=== PATIENT | female | born 1980 | race Caucasian/White ===

== ENCOUNTER → 2018-07-31 | Outpatient (CLI) | payer BC ==
[2018-07-31 12:13] LABS: Source, Urine Clean Catch
[2018-07-31 16:40] LABS: Bilirubin, Urine Neg (Neg); Blood, Urine Neg (Neg); Glucose Qualitative, Urine Neg (Neg); Ketones, Urine Neg (Neg); Leukocyte Esterase, Urine 1+ (Neg); Nitrite, Urine Neg (Neg); Protein, Urine Neg (Neg); Urobilinogen, Urine NORM (Normal); pH, Urine 6.5 (5.0-8.0)
[2018-07-31 17:04] LABS: Appearance, Urine Clear (Clear); Color, Urine Yellow (P-Yellow)
[2018-07-31 17:07] LABS: Bacteria Not Seen /hpf; Red Blood Cells, Urine Not Seen /hpf (0-2); Squamous Epithelial Cells Few /hpf (Few); White Blood Cells, Urine 0-2 /hpf (0-5)
== END ==
LOC: LAB SHORT 12:05 → LAB 12:05
PROVIDERS: Nurse Practitioner Family
DX: R30.0 Dysuria (principal)
CPT/HCPCS: 81001; 87086

== ENCOUNTER → 2019-04-19 | Outpatient (CLI) | payer BC | END | disposition home or self-care (01) | LOC: LAB SHORT 10:09 → LAB 10:09 | DX: R30.0 Dysuria (principal) | CPT/HCPCS: 87086 ==

== ENCOUNTER → 2019-06-21 | Outpatient (CLI) | payer BC ==
[2019-06-27 04:42] LABS: CHLAMYDIA TRACHOMATIS, NAA Negative (Negative); HPV 16 Negative (Negative); HPV 18 Negative (Negative); HPV OTHER HR TYPES Negative (Negative); NEISSERIA GONORRHOEAE, NAA Negative (Negative)
== END ==
LOC: LAB SHORT 11:50 → LAB 11:50
PROVIDERS: Student in an Organized Health Care Education/Training Program
DX: Z12.4 Encounter for screening for malignant neoplasm of cervix (principal); Z11.3 Encounter for screening for infections with a predominantly sexual mode of transmission
CPT/HCPCS: 87491; 87591; 87624; G0123

== ENCOUNTER 2020-12-18 20:08 | Emergency (ER) | payer BC ==
[~2020-12-18] VITALS: Ht 167.6 cm; Wt 95.2 kg
[2020-12-18] MEDS ORDERED: AMOCLA875 PO (21:25)
[2020-12-19] MEDS ORDERED: FLUC150A PO (00:22)
== END 2020-12-18 21:34 | disposition home or self-care (01) ==
LOC: ER 20:08
DX: S51.851A Open bite of right forearm, initial encounter (principal); Z23 Encounter for immunization; W54.0XXA Bitten by dog, initial encounter
CPT/HCPCS: 12001; 90471; 90714; 99282-25; A9270

== ENCOUNTER 2021-03-30 13:27 | Emergency (ER) | payer OTHER, BC ==
[~2021-03-30] VITALS: Ht 167.6 cm; Wt 95.2 kg
[~2021-03-30 13:27] MED LIST: AMOCLA875 PO; FLUC150A PO
== END 2021-03-30 15:11 | disposition home or self-care (01) ==
LOC: ER 13:27
DX: U07.1 COVID-19 (principal)
CPT/HCPCS: 93005; 93010; 99283-25